=== PATIENT | female | born 1940 | race Caucasian/White ===

== ENCOUNTER 2016-06-29 10:41 | Day surgery (SDC) | payer OTHER, BC ==
[2016-06-18 10:52] VITALS: BMI 28.0
--- NOTE | 2016-06-18 11:38 | PAT Medication Instructions ---
Service Date Jun 18, 2016. Current Home Medication List Acyclovir Topical (Zovirax), 1 APPLN TOP UD PRN for COLD SORE Amoxicillin (Amoxil), 2,000 MG PO UD Ascorbic Acid (Vitamin C *), 1,000 MG PO QAM Aspirin (Aspirin Ec), 81 MG PO QAM Calcium Carbonate-Cholecalcife (Calcium 1000 + D), 1 TAB PO QAM Cholecalciferol (Vitamin D3), 1 CAP PO QAM Cyanocobalamin (Vitamin B-12 Inj), 1 DOSE IM MONTHLY Gabapentin (Neurontin), 800 MG PO QID Hydrocodon/Acetaminophen 10MG/300MG (Vicodin Hp (10MG/300MG)), 1 TAB PO QID PRN for Pain Ibandronate (Boniva *), 150 MG PO MONTHLY Insulin Lispro Protamine & Lis (Humalog Mix 50/50), 15 UNITS SQ DINNER Levothyroxine Sodium (Levothyroxine Sodium), 1 TAB PO QAM Losartan Potassium (Cozaar), 25 MG PO QAM Multivitamin (Multivitamin), 1 TAB PO QAM Probiotic Product (Probiotic), 1 CAP PO QAM Repaglinide (Prandin), 4 MG PO BID [Magic Mouth Wash ], for THRUSH Medication Instructions For Your Scheduled Surgery - Hold the following medications the morning of surgery: Ascorbic Acid (Vitamin C *), 1,000 MG PO QAM Calcium Carbonate-Cholecalcife (Calcium 1000 + D), 1 TAB PO QAM Cholecalciferol (Vitamin D3), 1 CAP PO QAM Repaglinide (Prandin), 4 MG PO BID Losartan Potassium (Cozaar), 25 MG PO QAM Multivitamin (Multivitamin), 1 TAB PO QAM Probiotic Product (Probiotic), 1 CAP PO QAM - Take the following medications the morning of surgery with a sip of water OTHERWISE NOTHING TO EAT OR DRINK AFTER MIDNIGHT: Levothyroxine Sodium (Levothyroxine Sodium), 1 TAB PO QAM Gabapentin (Neurontin), 800 MG PO QID Hydrocodon/Acetaminophen 10MG/300MG (Vicodin Hp (10MG/300MG)), 1 TAB PO QID PRN for Pain (may take up to 4 hours prior to surgery if needed) Aspirin 81mg Daily - Take the following medications as scheduled the night before surgery: Insulin Lispro Protamine & Lis (Humalog Mix 50/50), 15 UNITS SQ DINNER Repaglinide (Prandin), 4 MG PO BID If you have any questions please call us at [phone] or [phone] or [phone]
[2016-06-18 12:22] LABS: BASO % 0.2 %; BASO ABS # 0.02 K/uL (0-0.2); COMPLETE YES; EOS % 2.3 %; HEMATOCRIT 38.8 % (37-47); IG% 0.2 %; LYMPH ABS # 2.57 K/uL (1.2-3.4); MEAN CELL VOLUME 82.7 fL (80-100); MEAN CORPUSCULAR HEMOGLOBIN 27.7 pg (25-34); MEAN CORPUSCULAR HGB CONC 33.5 g/dl (32-36); MEAN PLATELET VOLUME 11.2 fL (7.4-10.4); MONO % 8.1 %; NEUT % 60.2 %; PLATELET COUNT 268 K/uL (130-400); RED BLOOD COUNT 4.69 M/uL (4.2-5.4); WHITE BLOOD COUNT 8.86 K/uL (4.8-10.8)
[2016-06-18 12:23] LABS: URINE APPEARANCE CLEAR (CLEAR); URINE BILIRUBIN NEG (NEG); URINE COLOR YELLOW; URINE NITRITE NEG (NEG); URINE PH 7.5 (4.5-7.5); URINE SPECIFIC GRAVITY 1.017 (1.000-1.030); UROBILINOGEN NEG (NEG)
[2016-06-18 12:25] LABS: MANUAL MICROSCOPIC REQUIRED? NO; REVIEW REQ? NO
--- NOTE | 2016-06-18 12:26 | DIAGNOSTIC IMAGING REPORT ---
CHEST PREADMISSION(PA/LAT) HISTORY: Preop. COMPARISON: Chest 06/26/2011. FINDINGS: Stable linear scarlike density within the left midlung zone. The lungs are otherwise clear. No pleural effusions. No pneumothorax. The heart is normal in size. IMPRESSION: No acute process. Electronically signed by: Bradley Gonzalez M.D. 06/18/2016 12:25 PM Dictated Date/Time: 06/18/2016 12:24 PM
[~2016-06-29] VITALS: Ht 154.9 cm; Wt 66.9 kg
--- NOTE | 2016-06-29 07:27 | History & Physical Bridge Note ---
H&P Re-Evaluation Bridge Note: I have examined the patient, reviewed the History & Physical and in the interval since the performance of the History & Physical I have noted the following changes of clinical significance: No changes noted
--- NOTE | 2016-06-29 09:58 | History and Physical ---
History & Physical Date & Time of Service: Jun 29, 2016 at 09:52 Chief Complaint: Spinal Stenosis Primary Care Physician: RV. Saldana MD History of Present Illness Patient presents with neuropathy in her legs and feet. She has failed conservative measures and presents for SCS placement. Past Medical/Surgical History Surgical Problems: (1) coccyx removal Status: Resolved (2) Fibula fracture Status: Resolved Social History Smoking Status: Never Smoker Drug Use: none Marital Status: Occupational Status: retired Immunizations History of Influenza Vaccine: Yes History of Tetanus Vaccine?: Unknown History of Pneumococcal: Yes Pneumococcal Date: Jul 22, 2010 History of Hepatitis B Vaccine: No Multi-Drug Resistant Organisms History of MDRO: No Allergies Coded Allergies: Ibuprofen (Verified Allergy, Mild, ITCH, 06/22/16) Sulfa Antibiotics (Verified Allergy, Mild, RASH, 06/22/16) Simvastatin (Verified Adverse Reaction, Mild, MUSCLE PAIN, 06/22/16) Clindamycin (Verified Adverse Reaction, Unknown, C- DIFF, 06/22/16) Home Medications Scheduled Amoxicillin (Amoxil), 2,000 MG PO UD Ascorbic Acid (Vitamin C *), 1,000 MG PO QAM Aspirin (Aspirin Ec), 81 MG PO QAM Calcium Carbonate-Cholecalcife (Calcium 1000 + D), 1 TAB PO QAM Cholecalciferol (Vitamin D3), 1 CAP PO QAM Cyanocobalamin (Vitamin B-12 Inj), 1 DOSE IM MONTHLY Gabapentin (Neurontin), 800 MG PO QID Ibandronate (Boniva *), 150 MG PO MONTHLY Insulin Lispro Protamine & Lis (Humalog Mix 50/50), 15 UNITS SQ DINNER Levothyroxine Sodium (Levothyroxine Sodium), 1 TAB PO QAM Losartan Potassium (Cozaar), 25 MG PO QAM Multivitamin (Multivitamin), 1 TAB PO QAM Probiotic Product (Probiotic), 1 CAP PO QAM Repaglinide (Prandin), 4 MG PO BID Scheduled PRN Acyclovir Topical (Zovirax), 1 APPLN TOP UD PRN for COLD SORE Hydrocodon/Acetaminophen 10MG/300MG (Vicodin Hp (10MG/300MG)), 1 TAB PO QID PRN for Pain [Magic Mouth Wash ], for THRUSH Physical Exam General Appearance: WD/WN Head: normocephalic Eyes: normal inspection ENT: normal ENT inspection Neck: supple Respiratory/Chest: chest non-tender Cardiovascular: regular rate, rhythm Abdomen/GI: non tender, soft Back: normal inspection, no muscle spasm Extremities/Musculoskelatal: normal inspection, normal capillary refill Neurologic/Psych: [employer] II-XII nml as tested, + sensory deficit Skin: warm/dry Diagnostics Diagnostic Radiology X-rays scoliosis apex L2. Multi level spondylosis with no instability. Impression Assessment and Plan Patient with BLE neuropathy. Responded well to SCS trial and will surgically implant permanent device. Risks and benefits reviewed.
[~2016-06-29 10:41] MED LIST: ACYC5CRE4 TOP; AMOX500C3 PO; ASCA500 PO; ASPI81TA28 PO; BNV150 PO; CALC1TAB10 PO; CEFAZOLIN 1000MG/55 ML D5W IV SCH; CHOL2000 PO; CYAN3INJ IM; GABA800T PO; HYDR-3763 PO; INSU50IN SQ; LACTATED RINGER'S 1000ML 1,000 ML IV SCH; LEVO150T9 PO; LOSA1TAB PO; MAGIC MOUTH WASH; MISCCAP80 PO; MULT-506 PO; REPA2TAB13 PO
[2016-06-29 10:57] VITALS: BP 154/95; PULSE 81; TEMP 36.9; O2SAT 96; Ht 154.9 cm; Wt 66.9 kg
[2016-06-29] MEDS ORDERED: FENTANYL CITRATE INJ 50 MCG/1 ML 2 ML VIAL ONE (11:59)
[2016-06-29] MEDS ORDERED: MIDAZOLAM HCL 1 MG/ML 2ML VIAL ONE (11:59)
[2016-06-29] MEDS ORDERED: BUPIVACAINE/EPINEPHRINE 0.5% MPF 1:200,000 30 ML VIAL ONE (12:22)
[2016-06-29] MEDS ORDERED: BACITRACIN 50000 UNIT VIAL ONE (12:22)
--- NOTE | 2016-06-29 12:23 | History & Physical Bridge Note ---
H&P Re-Evaluation Bridge Note: I have examined the patient, reviewed the History & Physical and in the interval since the performance of the History & Physical I have noted the following changes of clinical significance: No changes noted T10 laminotomy with stim placement no L3 diskectomy
[2016-06-29] MEDS ORDERED: HYDROmorphone INJ 2 MG/ML SYR/VIAL ONE (13:28)
[2016-06-29] MEDS ORDERED: NEOSTIGMINE METHYLSULFATE 1 MG/ML 10ML VIAL ONE (13:30)
[2016-06-29] MEDS ORDERED: EpHEDrine SULFATE 50MG/5ML SYR ONE (13:30)
[2016-06-29] MEDS ORDERED: ROCURONIUM BROMIDE 10 MG/ML 5 ML VIAL ONE (13:30)
[2016-06-29] MEDS ORDERED: LIDOCAINE HCL 2% 2 ML VIAL (20MG/ML) ONE (13:30)
[2016-06-29] MEDS ORDERED: PROPOFOL IV EMULSION 10 MG/ML 20 ML VIAL IV ONE (13:30)
[2016-06-29] MEDS ORDERED: ONDANSETRON INJ 2 MG/ML 2 ML VIAL ONE (13:30)
[2016-06-29] MEDS ORDERED: GLYCOPYRROLATE INJ 0.2 MG/ML VIAL ONE (13:30)
[2016-06-29] MEDS ORDERED: FLOSEAL HEMOSTATIC MATRIX 5ML TOP ONE (13:40)
--- NOTE | 2016-06-29 13:40 | [facility] Post Operative Brief Note ---
Immediate Operative Summary Operative Date Jun 29, 2016. Pre-Operative Diagnosis Neuropathy Post-Operative Diagnosis Neuropathy Procedure(s) Performed L1 Laminotomy; Spinal Cord Stimulator Placement Surgeon Dr Wahl Rotary Filter Operator Surgeon(s) Gregg Golden PA-C Estimated Blood Loss 25ML Findings none Specimens None per surgeon
[2016-06-29] MEDS ORDERED: HYDR-3763 PO (13:43)
--- NOTE | 2016-06-29 13:44 | Discharge Instructions ---
Discharge Instructions Admission Reason for Admission: Spinal Stenosis Discharge Discharge Diagnosis / Problem: chronic leg pain Discharge Goals Goal(s): Decrease discomfort Activity Recommendations Activity Limitations: per Instructions/Follow-up section . Instructions / Follow-Up Instructions / Follow-Up ACTIVITY RECOMMENDATIONS: SELF CARE INSTRUCTIONS AFTER A LAMINECTOMY 1. No prolonged sitting (less than 30 minutes for the first 3 weeks after surgery). 2. No bending, lifting more than 5 pounds, or twisting (roll like a log when turning in bed). 3. You may shower 3 days after surgery if no drainage from wound. Thoroughly dry wound. Do not soak in the tub. 4. Please walk as much as you can for exercise. Gradually increase the distance that you walk as your endurance increases. 5. You may drive in 7-10 days if you are comfortable and no longer requiring pain medications. SPECIAL CARE INSTRUCTIONS: VERY IMPORTANT TO READ AND REVIEW A. Your surgical incision has been closed with a cosmetic suture under the skin that will dissolve in about 6 weeks. In 14 days, you can use a pair of clean scissors and cut the suture that is left outside of the skin at the ends of your incision. B. Complications are uncommon, but please contact us if you have any signs or symptoms of: 1. wound infection (fever higher than 102.5 degrees F, redness, separation of wound, drainage, or increasing pain from the incision) 2. blood clots in legs (pain, swelling, redness and warmth in legs) 3. urinary tract infection (fever higher than 102.5 degrees, burning upon urination or increased frequency of urination) 4. nerve problems (inability to walk on your toes or heels, numbness, loss of bowel or bladder control) 5. any other symptoms that concern you. C. Please call the office at if you have any concerns or questions about your operation or recovery. MANAGING PAIN AFTER SPINAL SURGERY 1. Narcotic medication is intended for short-term use and will be provided for surgical pain. Surgical pain usually lasts for a period of 4-6 weeks. Narcotic medication includes Percocet, Vicodin, Darvocet, Tylenol #3 or Lortab. 2. Longer-term pain is more appropriately treated with non-narcotic medication such as Tylenol ES. 3. Muscle spasm is not appropriately treated with narcotics. Muscle relaxers such as Soma, Flexeril or Skelaxin can be used along with Tylenol ES. 4. Remember that we all live with some "aches and pains". This is not unusual or uncommon after an injury or as we get older. 5. We will provide appropriate medication within the normal guidelines of their prescribed use. We will also be very cautious and aware of potential abuse and extended duration of patients' medication needs. 6. Please allow 2-3 days to process refills. Prescriptions will not be mailed but must be picked up at the office. FOLLOW UP VISIT: Keep your scheduled follow-up appointment. Any questions, please call the office at . Current Hospital Diet Patient's current hospital diet: Discharge Diet Recommended Diet: Regular Diet Procedures Procedures Performed: L1 Laminotomy; Spinal Cord Stimulator Placement Pending Studies Studies pending at discharge: no Laboratory Results Hemoglobin A1c Test 04/04/16 11:40 Range/Units Estimated Average Glucose 134 mg/dl Hemoglobin A1c 6.3 H 4.5-5.6 % Medical Emergencies . Who to Call and When: Medical Emergencies: If at any time you feel your situation is an emergency, please call 911 immediately. . Non-Emergent Contact Non-Emergency issues call your: Primary Care Provider . "Provider Documentation" section prepared by Caleb Wahl. VTE Core Measure Inpt VTE Proph given/why not?: Fausto Topete, [facility]
[2016-06-29] MEDS ORDERED: ACETAMINOPHEN 650 MG SUPP PR PRN (13:45)
[2016-06-29] MEDS ORDERED: ATROPINE SULFATE 0.1 MG/ML 5ML SYR IV PRN (13:45)
[2016-06-29] MEDS ORDERED: ACETAMINOPHEN 325 MG TAB PO PRN (13:45)
[2016-06-29] MEDS ORDERED: LABETALOL HCL IV 5 MG/ML 20ML IV PRN (13:45)
[2016-06-29] MEDS ORDERED: HYDROmorphone INJ 2 MG/ML SYR/VIAL IV PRN (13:45)
[2016-06-29] MEDS ORDERED: HYDROmorphone INJ 1 MG/ML SYR IV PRN (13:45)
[2016-06-29] MEDS ORDERED: ONDANSETRON INJ 2 MG/ML 2 ML VIAL IV PRN (13:45)
[2016-06-29] MEDS ORDERED: HYDROCODONE/ACETAMOPHEN 5/325MG TAB PO PRN (13:45)
--- NOTE | 2016-06-29 13:52 | DIAGNOSTIC IMAGING REPORT ---
LUMBAR SPINE, INTRAOPERATIVE FLUOROSCOPY HISTORY: Catheter placement. FLUOROSCOPY TIME: 12 seconds. FINDINGS: Intraoperative fluoroscopy was provided for the lumbar spine. 2 fluoroscopic spot images were obtained. IMPRESSION: Fluoroscopy provided for a epidural catheter placement. Electronically signed by: Arnoldo Tomas M.D. 06/29/2016 1:51 PM Dictated Date/Time: 06/29/2016 1:50 PM
--- NOTE | 2016-06-29 14:16 | OPERATIVE REPORT ---
DATE OF OPERATION: 06/29/2016 PREOPERATIVE DIAGNOSIS: Chronic bilateral leg pain. POSTOPERATIVE DIAGNOSIS: Same. PROCEDURES PERFORMED: 1. L1-2 laminotomy. 2. Placement of 16-lead dorsal column stimulator paddle. 3. Placement of rechargeable battery in the right flank. SURGEON: Dr. Caleb Wahl. SCOUT EXECUTIVE: Bertrand Golden PA-C. Due to the complex nature of the procedure, the entire surgery was performed with the operational assistance of JOSEMANUEL Gomez. The optometric assistant, under direct supervision, was involved in the actual performance of all aspects of the surgical procedure including hemostasis, tissue retraction and incision, instrument management, patient positioning, and wound closure. ANESTHESIA: General. DISPOSITION: The patient awakened and taken to PACU in stable condition. HISTORY OF PATIENT'S PROBLEMS: This is a 76-year-old female that presents with the above-mentioned diagnosis. After failing an extensive course of nonoperative care, elected to undergo the above-mentioned procedure. Risks, benefits, pros, cons, and alternatives were outlined in detail preoperatively. DESCRIPTION OF PROCEDURE: The patient was met with preoperatively, case discussed and all questions were addressed. At that point the patient was taken back to operative suite and after undergoing successful general endotracheal intubation by the department of anesthesia was placed in prone position on Linden table with a chest pad and hip bolsters. All bony prominences were well padded and the eyes were inspected to ensure there was no external pressure placed upon them. At this point the thoracolumbar spine was prepped and draped in normal sterile fashion. We did elect to move the paddle a little bit more distal in the canal in order to thoroughly and adequately cover her leg pain as it does extend into the feet. Subsequently, we moved the laminotomy site at L1 in order to pass the paddle up to T10. We verified our position with fluoroscopy. A midline incision was then created over L1-2 sharply and Bovie electrocautery to assist us in our exposure. A self-retaining retractor was placed. I then performed a midline laminotomy at L1-L2 and was able to pass the paddle up the canal to reach the appropriate position with x-ray guidance. We then created a pocket in the right flank for the rechargeable battery. The stim leads were sutured in position, tunneled to the battery site, connected to the battery. Battery was tested, battery was then planted in the pocket. The incisions were copiously irrigated, closed with subcutaneous Vicryl and Monocryl for final skin closure. Steri-Strips and sterile dressing placed. The patient was awakened and taken to PACU in stable condition. I attest to the content of the Intraoperative Record and any orders documented therein. Any exceptio ns are noted below.
--- NOTE | 2016-06-29 14:36 | Anesthesiology Progress Note ---
Anesthesia Post Op Note Date & Time Jun 29, 2016 at 14:36 Vital Signs Vital Signs Past 12 Hours Date Time Temp Pulse Resp B/P Pulse Ox O2 Delivery O2 Flow Rate FiO2 06/29/16 14:30 83 14 139/65 94 Room Air 06/29/16 14:20 87 14 143/65 96 Room Air 06/29/16 14:10 86 14 143/61 100 Mask 10 06/29/16 14:02 37.3 88 14 128/67 100 Mask 10 06/29/16 10:57 36.9 81 20 154/95 96 Room Air Notes Mental Status: alert / awake / arousable, participated in evaluation Pt Amnestic to Procedure: Yes Nausea / Vomiting: adequately controlled Pain: adequately controlled Airway Patency, RR, SpO2: stable & adequate BP & HR: stable & adequate Hydration State: stable & adequate Anesthetic Complications: no major complications apparent
[2016-06-29 14:50] VITALS: BP 173/77; PULSE 84; TEMP 36.6; O2SAT 97
[2016-06-29 15:20] VITALS: BP 156/79; PULSE 76; TEMP 36.6; O2SAT 97
[2016-06-29 16:15] VITALS: BP_SYST 156; BP_SYST 183; BP_DIAS 79; PULSE 76; PULSE 89; TEMP 36.8; O2SAT 96
== END 2016-06-29 17:24 | disposition home or self-care (01) ==
LOC: C.ACU 10:41
PROVIDERS: ATTEND Orthopaedic Surgery Orthopaedic Surgery of the Spine
DX: G89.4 Chronic pain syndrome (principal); M48.06 Spinal stenosis, lumbar region; G90.523 Complex regional pain syndrome I of lower limb, bilateral; Z88.1 Allergy status to other antibiotic agents; Z88.2 Allergy status to sulfonamides; Z88.8 Allergy status to other drugs, medicaments and biological substances; Z79.899 Other long term (current) drug therapy; Z79.4 Long term (current) use of insulin; Z79.82 Long term (current) use of aspirin

== ENCOUNTER → 2016-07-11 | Outpatient (CLI) | payer OTHER, BC ==
[~2016-07-11] MED LIST changes: -CEFAZOLIN 1000MG/55 ML D5W IV SCH; -LACTATED RINGER'S 1000ML 1,000 ML IV SCH
[2016-07-11 15:47] LABS: BLOOD UREA NITROGEN 17 mg/dl (7-18); BUN/CREATININE RATIO 21.8 (10-20); CALCIUM 8.8 mg/dl (8.5-10.1); CARBON DIOXIDE 27 mmol/L (21-32); CHLORIDE 105 mmol/L (98-107); CREATININE 0.79 mg/dl (0.60-1.20); GLUCOSE 121 mg/dl (70-99); SODIUM 140 mmol/L (136-145)
== END | disposition home or self-care (01) ==
LOC: C.LAB1850 14:06
PROVIDERS: ATTEND Nurse Practitioner Adult Health
DX: I10 Essential (primary) hypertension (principal)

== ENCOUNTER → 2016-08-13 | Outpatient (CLI) | payer OTHER, BC ==
[~2016-08-13] MED LIST changes: +REPA2TAB11 PO; -REPA2TAB13 PO
[2016-08-13 14:40] LABS: HEMATOCRIT 39.3 % (37-47)
[2016-08-13 15:24] LABS: ALKALINE PHOSPHATASE 101 U/L (45-117); ALT/SGPT 22 U/L (12-78); BLOOD UREA NITROGEN 19 mg/dl (7-18); BUN/CREATININE RATIO 29.2 (10-20); CALCIUM 8.7 mg/dl (8.5-10.1); CARBON DIOXIDE 28 mmol/L (21-32); CHLORIDE 105 mmol/L (98-107); CHOLESTEROL 190 mg/dl (0-200); CHOLESTEROL/HDL RATIO 4.5; CREATININE 0.64 mg/dl (0.60-1.20); GLUCOSE 99 mg/dl (70-99); HDL CHOLESTEROL 42 mg/dl; LDL CHOLESTEROL CALCULATED 114 mg/dl; POTASSIUM 3.6 mmol/L (3.5-5.1); SODIUM 141 mmol/L (136-145); TRIGLYCERIDES 170 mg/dl (0-150); VERY LOW DENSITY LIPOPROT CALC 34 mg/dl
[2016-08-13 15:34] LABS: ALB/GLOB RATIO 1.1 (0.9-2); AST/SGOT 16 U/L (15-37); THYROID STIMULATING HORMONE 0.066 uIu/ml (0.300-4.500)
[2016-08-13 16:29] LABS: RATIO 7.5 mcg/mg (0-30.0)
[2016-08-14 06:39] LABS: ESTIMATED AVERAGE GLUCOSE 137 mg/dl; HA1C FLAG Normal (Normal)
== END | disposition home or self-care (01) ==
LOC: C.LAB1850 13:56
PROVIDERS: ATTEND Nurse Practitioner Adult Health
DX: E03.9 Hypothyroidism, unspecified (principal); E10.8 Type 1 diabetes mellitus with unspecified complications; E78.5 Hyperlipidemia, unspecified; I10 Essential (primary) hypertension; E55.9 Vitamin D deficiency, unspecified

== ENCOUNTER → 2016-12-04 | Outpatient (CLI) | payer OTHER, BC ==
[~2016-12-04] MED LIST changes: -REPA2TAB11 PO; +REPA2TAB13 PO
[2016-12-04 13:52] LABS: ESTIMATED AVERAGE GLUCOSE 140 mg/dl; HA1C FLAG Normal (Normal)
[2016-12-04 14:12] LABS: THYROID STIMULATING HORMONE 1.52 uIu/ml (0.300-4.500)
== END | disposition home or self-care (01) ==
LOC: C.LAB1850 12:06
PROVIDERS: ATTEND Nurse Practitioner Adult Health
DX: E03.9 Hypothyroidism, unspecified (principal); E78.5 Hyperlipidemia, unspecified; E10.49 Type 1 diabetes mellitus with other diabetic neurological complication

== ENCOUNTER → 2016-12-04 | Outpatient (CLI) | payer OTHER, BC | END | disposition home or self-care (01) | LOC: C.MAMM 11:36 | PROVIDERS: ATTEND Internal Medicine | DX: M85.852 Other specified disorders of bone density and structure, left thigh (principal); E03.9 Hypothyroidism, unspecified; E78.5 Hyperlipidemia, unspecified; E10.49 Type 1 diabetes mellitus with other diabetic neurological complication ==

== ENCOUNTER → 2017-02-01 | Outpatient (CLI) | payer OTHER, BC ==
--- NOTE | 2017-02-01 11:39 | DIAGNOSTIC IMAGING REPORT ---
R FOOT MIN 3 VIEWS ROUTINE CLINICAL HISTORY: Right foot pain status post trauma COMPARISON: None. DISCUSSION: The bones are osteopenic. There is an acute fracture through the proximal aspect of the fifth metatarsal. The fracture is nondisplaced. No subluxations are visualized. There is Achilles insertional and plantar calcaneal spurring. There are postsurgical changes present within the distal tibia. IMPRESSION: Acute nondisplaced fracture through the proximal aspect of the fifth metatarsal. Electronically signed by: Yobani Cowan M.D. 02/01/2017 11:37 AM Dictated Date/Time: 02/01/2017 11:36 AM
== END | disposition home or self-care (01) ==
LOC: C.RAD1850 11:24
PROVIDERS: ATTEND Internal Medicine
DX: S92.354A Nondisplaced fracture of fifth metatarsal bone, right foot, initial encounter for closed fracture (principal); X58.XXXA Exposure to other specified factors, initial encounter

== ENCOUNTER → 2017-02-18 | Outpatient (CLI) | payer OTHER, BC ==
--- NOTE | 2017-02-18 09:05 | DIAGNOSTIC IMAGING REPORT ---
RIGHT FOOT 3 VIEWS CLINICAL HISTORY: Follow-up fracture. FINDINGS: 3 views of the right foot are compared to study dated 02/01/2017. There is unchanged alignment of a fracture through the proximal shaft of the fifth metatarsal as compared to 02/01/2017. Overlying soft tissue edema persists. No additional fracture is seen. An os naviculari is incidentally noted. There is mild arthritic change at the first metatarsophalangeal joint. Large dorsal and plantar calcaneal enthesophytes are observed. Postoperative change is seen in the distal tibia. IMPRESSION: Unchanged alignment of a fracture through the proximal shaft of the fifth metatarsal as compared to previous. Electronically signed by: Arnel Melo M.D. 02/18/2017 9:04 AM Dictated Date/Time: 02/18/2017 9:02 AM
== END | disposition home or self-care (01) ==
LOC: C.RDSM 13:39
PROVIDERS: ATTEND Physician Assistant
DX: Z09 Encounter for follow-up examination after completed treatment for conditions other than malignant neoplasm (principal); S92.351D Displaced fracture of fifth metatarsal bone, right foot, subsequent encounter for fracture with routine healing; X58.XXXD Exposure to other specified factors, subsequent encounter

== ENCOUNTER → 2017-03-13 | Outpatient (CLI) | payer OTHER, BC ==
[~2017-03-13] MED LIST changes: +REPA2TAB11 PO; -REPA2TAB13 PO
--- NOTE | 2017-03-13 13:05 | DIAGNOSTIC IMAGING REPORT ---
R FOOT MIN 3 VIEWS HISTORY: 77 years-old Female F/U RIGHT FOOT FX acute right foot pain with fifth metatarsal fracture. Follow-up exam. COMPARISON: Foot radiographs 02/18/2017 TECHNIQUE: 3 views of the right foot FINDINGS: There is progressive healing callus formation involving the obliquely oriented nondisplaced complete fracture involving the proximal metaphyseal fifth metatarsal which extends 3 mm distal to the proximal metatarsal base. The bones are moderately demineralized. Degenerative changes are seen throughout the midfoot and interphalangeal joints. Type II accessory navicular. Moderate spurring about the calcaneus. Partially imaged fusion hardware of the distal tibia. Mild soft tissue swelling of the dorsal forefoot redemonstrated. IMPRESSION: Progressive healing of the nondisplaced fracture involving the proximal metaphyseal fifth metatarsal with unchanged alignment. The above report was generated using voice recognition software. It may contain grammatical, syntax or spelling errors. Electronically signed by: Ciro Turpin M.D. 03/13/2017 1:03 PM Dictated Date/Time: 03/13/2017 1:01 PM
== END | disposition home or self-care (01) ==
LOC: C.RDSM 13:15
PROVIDERS: ATTEND Physician Assistant
DX: Z09 Encounter for follow-up examination after completed treatment for conditions other than malignant neoplasm (principal); M79.671 Pain in right foot; S92.351D Displaced fracture of fifth metatarsal bone, right foot, subsequent encounter for fracture with routine healing; X58.XXXD Exposure to other specified factors, subsequent encounter

== ENCOUNTER → 2017-03-13 | Outpatient (CLI) | payer OTHER, BC ==
--- NOTE | 2017-03-14 07:51 | MAMMOGRAPHY REPORT ---
BILATERAL DIGITAL SCREENING MAMMOGRAM TOMOSYNTHESIS WITH CAD: 03/13/2017 CLINICAL HISTORY: Routine screening. Patient has no complaints. TECHNIQUE: Breast tomosynthesis in addition to standard 2D mammography was performed. Current study was also evaluated with a Computer Aided Detection (CAD) system. COMPARISON: Comparison is made to exams dated: 03/09/2016 mammogram, 03/08/2015 ultrasound, 03/08/2015 mammogram, 02/23/2015 mammogram, 02/19/2014 mammogram, and 02/18/2013 mammogram - [facility]. BREAST COMPOSITION: The tissue of both breasts is heterogeneously dense, which may obscure small mas ses. FINDINGS: No suspicious masses, calcifications, or areas of architectural distortion are noted in ei ther breast. There has been no significant interval change compared to prior exams. A linear scar ma rker denotes a scar on the right upper inner breast. Scattered bilateral benign-appearing calcificat ions are not significantly changed. Focal asymmetry in the right upper inner quadrant posteriorly is stable compared to multiple prior exams including the 2013 exam and is considered benign given long- term stability. IMPRESSION: ACR BI-RADS CATEGORY 2: BENIGN There is no mammographic evidence of malignancy. A 1 year screening mammogram is recommended. The pa tient will receive written notification of the results. Approximately 10% of breast cancers are not detected with mammography. A negative mammographic report should not delay biopsy if a clinically suggestive mass is present. Jillian Bolden M.D. ah/:03/13/2017 12:19:39 [employer]ases [employer] Manager: Akilah MONTGOMERY(Laureano)(Rashel), [facility] letter sent: Normal 1/2 BI-RADS Code: ACR BI-RADS Category 2: Benign
== END | disposition home or self-care (01) ==
LOC: C.MAMM 11:49
PROVIDERS: ATTEND Obstetrics & Gynecology
DX: Z12.31 Encounter for screening mammogram for malignant neoplasm of breast (principal)

== ENCOUNTER → 2017-03-13 | Outpatient (CLI) | payer OTHER, BC ==
[2017-03-14 06:47] LABS: ESTIMATED AVERAGE GLUCOSE 137 mg/dl; HA1C FLAG Normal (Normal)
== END | disposition home or self-care (01) ==
LOC: C.LAB1850 15:05
PROVIDERS: ATTEND Nurse Practitioner Adult Health
DX: E10.49 Type 1 diabetes mellitus with other diabetic neurological complication (principal); E78.5 Hyperlipidemia, unspecified

== ENCOUNTER → 2017-04-12 | Outpatient (CLI) | payer OTHER, BC ==
--- NOTE | 2017-04-12 12:09 | DIAGNOSTIC IMAGING REPORT ---
RIGHT FOOT 3 VIEWS CLINICAL HISTORY: Follow-up fracture. FINDINGS: 3 views of the right foot are compared to study dated 03/13/2017. The skeletal structures are osteopenic. There is unchanged alignment of a nonunited fracture through the proximal shaft of the fifth metatarsal as compared to previous. Mild overlying soft tissue edema persists. No additional fracture is seen. An os naviculari is incidentally noted. There is mild arthritic change at the first metatarsophalangeal joint. Large dorsal and plantar calcaneal enthesophytes are observed. Postoperative change is again seen in the distal tibia. IMPRESSION: Unchanged alignment of a nonunited fracture through the proximal shaft of the fifth metatarsal as compared to 03/13/2017. Electronically signed by: Arnel Melo M.D. 04/12/2017 12:08 PM Dictated Date/Time: 04/12/2017 12:07 PM
== END | disposition home or self-care (01) ==
LOC: C.RDSM 13:48
PROVIDERS: ATTEND Physician Assistant
DX: S92.351K Displaced fracture of fifth metatarsal bone, right foot, subsequent encounter for fracture with nonunion (principal); X58.XXXD Exposure to other specified factors, subsequent encounter

== ENCOUNTER → 2017-05-13 | Outpatient (CLI) | payer OTHER, BC ==
[2017-05-13 13:41] LABS: ALBUMIN 3.7 gm/dl (3.4-5.0); ALT/SGPT 24 U/L (12-78); AST/SGOT 17 U/L (15-37); BLOOD UREA NITROGEN 14 mg/dl (7-18); CARBON DIOXIDE 29 mmol/L (21-32); CREATININE 0.67 mg/dl (0.60-1.20); GLUCOSE 81 mg/dl (70-99); POTASSIUM 3.9 mmol/L (3.5-5.1); SODIUM 138 mmol/L (136-145)
[2017-05-13 13:44] LABS: ALKALINE PHOSPHATASE 109 U/L (45-117); PHOSPHORUS 2.6 mg/dl (2.5-4.9); TOTAL PROTEIN 6.9 gm/dl (6.4-8.2)
== END | disposition home or self-care (01) ==
LOC: C.LAB1850 11:39
PROVIDERS: ATTEND Internal Medicine Endocrinology, Diabetes & Metabolism
DX: M85.80 Other specified disorders of bone density and structure, unspecified site (principal)

== ENCOUNTER → 2017-05-13 | Outpatient (CLI) | payer OTHER, BC | END | disposition home or self-care (01) | LOC: C.RDSM 13:00 | PROVIDERS: ATTEND Physical Medicine & Rehabilitation Sports Medicine | DX: S92.324D Nondisplaced fracture of second metatarsal bone, right foot, subsequent encounter for fracture with routine healing (principal); X58.XXXD Exposure to other specified factors, subsequent encounter ==

== ENCOUNTER → 2017-06-14 | Outpatient (CLI) | payer OTHER, BC | END | disposition home or self-care (01) | LOC: C.LAB1850 09:20 | PROVIDERS: ATTEND Internal Medicine Endocrinology, Diabetes & Metabolism | DX: M85.80 Other specified disorders of bone density and structure, unspecified site (principal); R79.9 Abnormal finding of blood chemistry, unspecified ==

== ENCOUNTER → 2017-08-14 | Outpatient (CLI) | payer OTHER, BC ==
[2017-08-14 17:59] LABS: ALBUMIN 3.4 gm/dl (3.4-5.0); CALCIUM 8.8 mg/dl (8.5-10.1); CREATININE 0.68 mg/dl (0.60-1.20)
[2017-08-14 18:10] LABS: CHOLESTEROL 191 mg/dl (0-200); LDL CHOLESTEROL CALCULATED 127 mg/dl
[2017-08-15 06:45] LABS: HEMOGLOBIN A1C 6.8 % (4.5-5.6)
== END | disposition home or self-care (01) ==
LOC: C.LAB1850 16:03
PROVIDERS: ATTEND Internal Medicine Endocrinology, Diabetes & Metabolism
DX: E03.9 Hypothyroidism, unspecified (principal); E10.49 Type 1 diabetes mellitus with other diabetic neurological complication; E53.8 Deficiency of other specified B group vitamins; M16.9 Osteoarthritis of hip, unspecified; M47.816 Spondylosis without myelopathy or radiculopathy, lumbar region; N39.46 Mixed incontinence

== ENCOUNTER → 2017-08-19 | Outpatient (CLI) | payer OTHER, BC | END | disposition home or self-care (01) | LOC: C.RDSM 10:30 | PROVIDERS: ATTEND Physical Medicine & Rehabilitation Sports Medicine | DX: M79.671 Pain in right foot (principal) ==

== ENCOUNTER → 2017-12-17 | Outpatient (CLI) | payer OTHER, BC ==
[2017-12-17 15:58] LABS: HEMOGLOBIN A1C 6.8 % (4.5-5.6)
== END | disposition home or self-care (01) ==
LOC: C.LAB1850 13:28
PROVIDERS: ATTEND Nurse Practitioner Adult Health
DX: E10.49 Type 1 diabetes mellitus with other diabetic neurological complication (principal); I10 Essential (primary) hypertension